=== PATIENT | male | born 1950 | race Caucasian/White ===

== ENCOUNTER 2017-08-02 00:18 | Inpatient (IN) | payer OTHER ==
[~2017-08-02] VITALS: Ht 185.4 cm; Wt 98.0 kg
[2017-08-02] VITALS (7 sets, daily range): BP systolic 119–144; BP diastolic 50–78
[2017-08-02] MEDS: IV NORMAL SALINE 1000ML BAG 1,000 ML IV SCH ×4 (01:30→22:33)
[2017-08-02] MEDS ORDERED: CARB15DR23 OT (02:30)
[2017-08-02] MEDS ORDERED: SILD100T PO (02:30)
[2017-08-02] MEDS ORDERED: MULT1TAB52 PO (02:30)
[2017-08-02] MEDS ORDERED: OMEG1CAP6 PO (02:30)
[2017-08-02] MEDS ORDERED: PROP20TA PO (02:30)
[2017-08-02] MEDS ORDERED: [UNRECOGNIZED DRUG - CODE] PO (02:30)
[2017-08-02] MEDS ORDERED: AMOX125S4 PO (02:30)
[2017-08-02] MEDS ORDERED: ASCO500T3 PO (02:30)
[2017-08-02] MEDS ORDERED: SAW1CAPS3 PO (02:30)
[2017-08-02 05:21] LABS: BASO % 0 % (0-3); EOS % 7 % (0-3); HEMATOCRIT 40.7 % (39.0-53.0); HEMOGLOBIN 14.2 g/dL (13.0-17.5); LYMPH # 0.8 x10^3/uL (1.0-4.8); LYMPH % 13 % (24-48); MEAN CORPUSCULAR HEMOGLOBIN 33 pg (25-35); MEAN CORPUSCULAR HGB CONC 35 g/dL (31-37); MEAN CORPUSCULAR VOLUME 95 fL (79-100); MONO % 11 % (0-9); NEUT % 70 % (31-73); PLATELET COUNT 180 x10^3/uL (140-400); RED BLOOD COUNT 4.29 x10^6/uL (4.30-5.70); WHITE BLOOD COUNT 6.2 x10^3/uL (4.0-11.0)
[2017-08-02 05:32] LABS: ALBUMIN 3.2 g/dL (3.4-5.0); ALBUMIN/GLOBULIN RATIO 1.1 (1.0-1.7); CALCIUM 8.5 mg/dL (8.5-10.1); CREATININE 0.8 mg/dL (0.7-1.3); GFR 96.1; POTASSIUM 4.2 mmol/L (3.5-5.1); TOTAL BILIRUBIN 3.2 mg/dL (0.2-1.0); TOTAL PROTEIN 6.2 g/dL (6.4-8.2)
[2017-08-02 05:41] LABS: INR 1.1 (0.8-1.1); PROTHROMBIN TIME PATIENT 13.4 SEC (11.7-14.0)
[2017-08-02] MEDS ORDERED: PIP/TAZO PER PHARMACY MC PRN (08:30)
[2017-08-02] MEDS: fentaNYL PF VIAL 100 MCG/2 ML VIAL IV PRN ×6 (08:37→23:37)
--- NOTE | 2017-08-02 08:43 | PDOC1 ---
History and Physical Date of Admission Date of Admission DATE: 08/02/17 TIME: 08:40 Identification/Chief Complaint Chief Complaint left ear pain, and abd pain Problems: Source Source: Chart review, Patient History of Present Illness History of Present Illness pt sought care at [facility] last night for recurrent left ear pain, recent infection, s/p Amoxicillin that he feels has returned, has marked ear pain, left. He has felt poorly for days, almost no PO intake > 2 days, nausea, slight abd pain. He feels pain was from just not eating. Recent prior labs a few weeks ago were normal, labs last night showed elevated Bili, transaminases. CT scan abdomen was read as possible Choledochalithiasis. w. a contracted gallbladder. Past Medical History Cardiovascular: HTN Pulmonary: No pertinent hx CENTRAL NERVOUS SYSTEM: Other (intention tremor) GI: No pertinent hx Heme/Onc: No pertinent hx ENT: No pertinent hx Renal/: No pertinent hx Past Surgical History Past Surgical History leg wounds from shrapnel in [place], 1969 Family History Family History: No Significant Social History Smoke: <1 pack per day ALCOHOL: none Drugs: None Current Medications Current Medications Current Medications Sodium Chloride 1,000 ml @ 150 mls/hr Q6H40M IV Last administered on t 01:30; Start 08/02/17 at 01:15 Propranolol HCl (Inderal) 20 mg BID PO ; Start 08/02/17 at 09:00 Fentanyl Citrate (Fentanyl 2ml Vial) 50 mcg PRN Q2HR PRN IV PAIN; Start at 08:30 Active Scripts Active Reported Saw [place] Capsule (Saw [place] Xtr/Zinc Picolin) 1 Each Capsule 1 Each PO Multivitamins (Multivitamin) 1 Each Tablet 1 Tab PO DAILY Fish Oil 1,000 Mg Capsule ([place]-3 Fatty Acids/Fish Oil) 1 Each Capsule 1 Each PO DAILY Ascorbic Acid 500 Mg Tablet 500 Mg PO DAILY Viagra (Sildenafil Citrate) 100 Mg Tablet 1 Tab PO PRN DAILY Propranolol Hcl 20 Mg Tablet 1 Tab PO BID Methylphenidate HCl 10 Mg Tab.chew 10 Mg PO TID Ear Wax Removal (Carbamide Peroxide) 15 Ml Drops 15 Ml OT PRN PRN Amoxicillin 125 Mg/5 Ml Susp.recon 125 Mg PO BID Allergies Allergies: Coded Allergies: No Known Medication Allergies (Verified Allergy, Unknown, 08/02/17) Penicillins (Verified Adverse Reaction, Mild, 08/02/17) he has taken Amoxicillin recently without indicent, he thinks the allergy is more due to Darvon at the time, 40 years ago ROS General: YES: Fatigue, Malaise, Appetite, No: Chills, Night Sweats, Other PSYCHOLOGICAL ROS: YES: Anxiety, Sleep disturbances, No: Behavioral Disorder, Concentration difficultie, Decreased libido, Depression, Disorientation, Hallucinations, Hostility, Irritablity, Memory difficulties, Mood Swings, Obsessive thoughts, Other Eyes: No Blurry vision, No Decreased vision, No Double vision, No Dry eyes, No Excessive tearing, No Eye Pain, No Itchy Eyes, No Loss of vision, No Photophobia , No Scotomata, No Uses contacts, No Uses glasses, No Other HEENT: YES: Heacaches, Other (ear pain, left), No: Visual Changes, Hearing change, Nasal congestion, Nasal discharge, Oral lesions, Sinus pain, Sore Throat, Epistaxis, Sneezing, Snoring, Tinnitus, Vertigo, Vocal changes Respiratory: No: Cough, Hemoptysis, Orthopnea, Pleuritic Pain, Shortness of breath, SOB with excertion, Sputum Changes, Stridor, Tachypnea, Wheezing, Other Cardiovascular: No Chest Pain, No Palpitations, No Orthopnea, No Paroxysmal Noc. Dyspnea, No Edema, No Lt Headedness, No Other Gastrointestinal: Yes Nausea, Yes Abdominal Pain Genitourinary: No Dysuria, No Frequency, No Incontinence, No Hematuria, No Retention, No Discharge, No Urgency, No Pain, No Flank Pain, No Other, No , No , No , No , No , No , No Musculoskeletal: No Gait Disturbance, No Joint Pain, No Joint Stiffness, No Joint Swelling, No Muscle Pain, No Muscular Weakness, No Pain In:, No Swelling In:, No Other Neurological: No Behavorial Changes, No Bowel/Bladder ControlChng, No Confusion , No Dizziness, No Gait Disturbance, No Headaches, No Impaired Coord/balance, No Memory Loss, No Numbness/Tingling, No Seizures, No Speech Problems, No Tremors, No Visual Changes, No Weakness, No Other Skin: No Dry Skin, No Eczema, No Hair Changes, No Lumps, No Mole Changes, No Mottling, No Nail Changes, No Pruritus, No Rash, No Skin Lesion Changes, No Other, No Acne Physical Exam General: Alert, Oriented X3, mild distress HEENT: EOMI, Mucous membr. moist/pink Lungs: Clear to auscultation, Normal air movement Heart: RRR, no gallops, no murmurs Abdomen: Normal bowel sounds, Soft (mild TTP) Extremities: No clubbing, No edema Skin: No rashes, No significant lesion Neuro: Normal gait, Normal speech, Sensation intact, Cranial nerves 3-12 NL Psych/Mental Status: Mental status NL, Mood NL Vitals Vitals Vital Signs Date Time Temp Pulse Resp B/P (MAP) Pulse Ox O2 Delivery O2 Flow Rate FiO2 08/02/17 03:00 98.6 72 18 119/61 (80) 97 Room Air 98.6 Labs Labs Laboratory Tests Test 08/02/17 04:30 White Blood Count 6.2 x10^3/uL (4.0-11.0) Red Blood Count 4.29 x10^6/uL (4.30-5.70) Hemoglobin 14.2 g/dL (13.0-17.5) Hematocrit 40.7 % (39.0-53.0) Mean Corpuscular Volume 95 fL (79-100) Mean Corpuscular Hemoglobin 33 pg (25-35) Mean Corpuscular Hemoglobin Concent 35 g/dL (31-37) Red Cell Distribution Width 14.0 % (11.5-14.5) Platelet Count 180 x10^3/uL (140-400) Neutrophils (%) (Auto) 70 % (31-73) Lymphocytes (%) (Auto) 13 % (24-48) Monocytes (%) (Auto) 11 % (0-9) Eosinophils (%) (Auto) 7 % (0-3) Basophils (%) (Auto) 0 % (0-3) Neutrophils # (Auto) 4.3 x10^3uL (1.8-7.7) Lymphocytes # (Auto) 0.8 x10^3/uL (1.0-4.8) Monocytes # (Auto) 0.7 x10^3/uL (0.0-1.1) Eosinophils # (Auto) 0.4 x10^3/uL (0.0-0.7) Basophils # (Auto) 0.0 x10^3/uL (0.0-0.2) Prothrombin Time 13.4 SEC (11.7-14.0) Prothromb Time International Ratio 1.1 (0.8-1.1) Sodium Level 141 mmol/L (136-145) Potassium Level 4.2 mmol/L (3.5-5.1) Chloride Level 105 mmol/L (98-107) Carbon Dioxide Level 31 mmol/L (21-32) Anion Gap 5 (6-14) Blood Urea Nitrogen 12 mg/dL (8-26) Creatinine 0.8 mg/dL (0.7-1.3) Estimated GFR (Cockcroft-Gault) 96.1 BUN/Creatinine Ratio 15 (6-20) Glucose Level 98 mg/dL (70-99) Calcium Level 8.5 mg/dL (8.5-10.1) Total Bilirubin 3.2 mg/dL (0.2-1.0) Aspartate Amino Transf (AST/SGOT) 251 U/L (15-37) Alanine Aminotransferase (ALT/SGPT) 575 U/L (16-63) Alkaline Phosphatase 135 U/L (46-116) Total Protein 6.2 g/dL (6.4-8.2) Albumin 3.2 g/dL (3.4-5.0) Albumin/Globulin Ratio 1.1 (1.0-1.7) Laboratory Tests Test 08/02/17 04:30 White Blood Count 6.2 x10^3/uL (4.0-11.0) Red Blood Count 4.29 x10^6/uL (4.30-5.70) Hemoglobin 14.2 g/dL (13.0-17.5) Hematocrit 40.7 % (39.0-53.0) Mean Corpuscular Volume 95 fL (79-100) Mean Corpuscular Hemoglobin 33 pg (25-35) Mean Corpuscular Hemoglobin Concent 35 g/dL (31-37) Red Cell Distribution Width 14.0 % (11.5-14.5) Platelet Count 180 x10^3/uL (140-400) Neutrophils (%) (Auto) 70 % (31-73) Lymphocytes (%) (Auto) 13 % (24-48) Monocytes (%) (Auto) 11 % (0-9) Eosinophils (%) (Auto) 7 % (0-3) Basophils (%) (Auto) 0 % (0-3) Neutrophils # (Auto) 4.3 x10^3uL (1.8-7.7) Lymphocytes # (Auto) 0.8 x10^3/uL (1.0-4.8) Monocytes # (Auto) 0.7 x10^3/uL (0.0-1.1) Eosinophils # (Auto) 0.4 x10^3/uL (0.0-0.7) Basophils # (Auto) 0.0 x10^3/uL (0.0-0.2) Prothrombin Time 13.4 SEC (11.7-14.0) Prothromb Time International Ratio 1.1 (0.8-1.1) Sodium Level 141 mmol/L (136-145) Potassium Level 4.2 mmol/L (3.5-5.1) Chloride Level 105 mmol/L (98-107) Carbon Dioxide Level 31 mmol/L (21-32) Anion Gap 5 (6-14) Blood Urea Nitrogen 12 mg/dL (8-26) Creatinine 0.8 mg/dL (0.7-1.3) Estimated GFR (Cockcroft-Gault) 96.1 BUN/Creatinine Ratio 15 (6-20) Glucose Level 98 mg/dL (70-99) Calcium Level 8.5 mg/dL (8.5-10.1) Total Bilirubin 3.2 mg/dL (0.2-1.0) Aspartate Amino Transf (AST/SGOT) 251 U/L (15-37) Alanine Aminotransferase (ALT/SGPT) 575 U/L (16-63) Alkaline Phosphatase 135 U/L (46-116) Total Protein 6.2 g/dL (6.4-8.2) Albumin 3.2 g/dL (3.4-5.0) Albumin/Globulin Ratio 1.1 (1.0-1.7) VTE Prophylaxis Ordered VTE Prophylaxis Devices: Yes VTE Pharmacological Prophylaxi: No Assessment/Plan Assessment/Plan Acute hyperbili, w. transaminitis, choledochalithiasis, check MRCP, consult gen surg and GI left ear otitis media, s/p recent abx with amoxicillin, and he feels fullness has returned, start RED Massey MD Aug 02, 2017 08:43
[2017-08-02] MEDS ORDERED: NICOTINE 14MG PATCH. TD PRN (08:45)
[2017-08-02] MEDS: PROPRANOLOL 10 MG TABLET. PO SCH ×2 (09:00→20:32)
[2017-08-02] MEDS: PIPERACILLIN/TAZOBACTAM 4.5 GM in IV NORMAL SALINE 100ML 100 ML IV SCH ×2 (09:46→17:33)
--- NOTE | 2017-08-02 09:49 | PDOC2 ---
CONSULT Date of Consult Date of Consult DATE: 08/02/17 TIME: 09:43 Reason for Consult Reason for Consult: Elevated LFT's and abnormal CT scan of the abdomen Referring Physician Referring Physician: Damon Identification/Chief Complaint Chief Complaint Headache and left ear pain Problems: Source Source: Patient History of Present Illness Reason for Visit: 66 yo male seen intially at [facility] in [place] for headache and left ear pain. On work up he was found to have elevated LFT's and CT scan showing dilated biliary ducts. His main complaint is head ache. He states he has not eaten much in the last 2 days with some nausea. Denies abdominal pain. Past Medical History Cardiovascular: HTN Pulmonary: No pertinent hx CENTRAL NERVOUS SYSTEM: Other (intention tremor) GI: No pertinent hx Heme/Onc: No pertinent hx ENT: No pertinent hx Renal/: No pertinent hx Past Surgical History Past Surgical History: No pertinent history Family History Family History: No Significant Social History <1 pack per day ALCOHOL: none Drugs: None Current Medications Current Medications Current Medications Sodium Chloride 1,000 ml @ 150 mls/hr Q6H40M IV Last administered on 08:40; Start 08/02/17 at 01:15 Propranolol HCl (Inderal) 20 mg BID PO ; Start 08/02/17 at 09:00 Fentanyl Citrate (Fentanyl 2ml Vial) 50 mcg PRN Q2HR PRN IV PAIN Last administered on 08/02/17 08:37; Start 08/02/17 at 08:30 Piperacillin Sod/ Tazobactam Sod (Zosyn Per Pharmacy) 1 each PRN DAILY PRN MC SEE COMMENTS; Start 08/02/17 at 08:30 Nicotine (Nicoderm Cq 14mg) 1 patch PRN DAILY PRN TD SMOKING CESSATION; Start 08/02/17 at 08:45 Piperacillin Sod/ Tazobactam Sod 4.5 gm/Sodium Chloride 100 ml @ 200 mls/hr Q8H IV ; Start 08/02/17 at 09:00 Active Scripts Active Reported Saw [place] Capsule (Saw [place] Xtr/Zinc Picolin) 1 Each Capsule 1 Each PO Multivitamins (Multivitamin) 1 Each Tablet 1 Tab PO DAILY Fish Oil 1,000 Mg Capsule ([place]-3 Fatty Acids/Fish Oil) 1 Each Capsule 1 Each PO DAILY Ascorbic Acid 500 Mg Tablet 500 Mg PO DAILY Viagra (Sildenafil Citrate) 100 Mg Tablet 1 Tab PO PRN DAILY Propranolol Hcl 20 Mg Tablet 1 Tab PO BID Methylphenidate HCl 10 Mg Tab.chew 10 Mg PO TID Ear Wax Removal (Carbamide Peroxide) 15 Ml Drops 15 Ml OT PRN PRN Amoxicillin 125 Mg/5 Ml Susp.recon 125 Mg PO BID Allergies Allergies: Coded Allergies: No Known Medication Allergies (Verified Allergy, Unknown, 08/02/17) Penicillins (Verified Adverse Reaction, Mild, 08/02/17) he has taken Amoxicillin recently without indicent, he thinks the allergy is more due to Darvon at the time, 40 years ago ROS HEENT: YES: Heacaches, Hearing change Gastrointestinal: Yes Nausea Physical Exam General: Alert, Oriented X3, moderate distress HEENT: Atraumatic, PERRLA, EOMI Lungs: Clear to auscultation, Normal air movement Heart: Regular rate, No murmurs Abdomen: Normal bowel sounds, Soft, No tenderness Extremities: No edema Skin: No significant lesion Neuro: Normal speech Psych/Mental Status: Mental status NL Vitals VITALS Vital Signs Date Time Temp Pulse Resp B/P (MAP) Pulse Ox O2 Delivery O2 Flow Rate FiO2 08/02/17 08:37 Room Air 08/02/17 07:00 97.7 75 18 144/63 (90) 92 97.7 Labs Labs Laboratory Tests Test 08/02/17 04:30 White Blood Count 6.2 x10^3/uL (4.0-11.0) Red Blood Count 4.29 x10^6/uL (4.30-5.70) Hemoglobin 14.2 g/dL (13.0-17.5) Hematocrit 40.7 % (39.0-53.0) Mean Corpuscular Volume 95 fL (79-100) Mean Corpuscular Hemoglobin 33 pg (25-35) Mean Corpuscular Hemoglobin Concent 35 g/dL (31-37) Red Cell Distribution Width 14.0 % (11.5-14.5) Platelet Count 180 x10^3/uL (140-400) Neutrophils (%) (Auto) 70 % (31-73) Lymphocytes (%) (Auto) 13 % (24-48) Monocytes (%) (Auto) 11 % (0-9) Eosinophils (%) (Auto) 7 % (0-3) Basophils (%) (Auto) 0 % (0-3) Neutrophils # (Auto) 4.3 x10^3uL (1.8-7.7) Lymphocytes # (Auto) 0.8 x10^3/uL (1.0-4.8) Monocytes # (Auto) 0.7 x10^3/uL (0.0-1.1) Eosinophils # (Auto) 0.4 x10^3/uL (0.0-0.7) Basophils # (Auto) 0.0 x10^3/uL (0.0-0.2) Prothrombin Time 13.4 SEC (11.7-14.0) Prothromb Time International Ratio 1.1 (0.8-1.1) Sodium Level 141 mmol/L (136-145) Potassium Level 4.2 mmol/L (3.5-5.1) Chloride Level 105 mmol/L (98-107) Carbon Dioxide Level 31 mmol/L (21-32) Anion Gap 5 (6-14) Blood Urea Nitrogen 12 mg/dL (8-26) Creatinine 0.8 mg/dL (0.7-1.3) Estimated GFR (Cockcroft-Gault) 96.1 BUN/Creatinine Ratio 15 (6-20) Glucose Level 98 mg/dL (70-99) Calcium Level 8.5 mg/dL (8.5-10.1) Total Bilirubin 3.2 mg/dL (0.2-1.0) Aspartate Amino Transf (AST/SGOT) 251 U/L (15-37) Alanine Aminotransferase (ALT/SGPT) 575 U/L (16-63) Alkaline Phosphatase 135 U/L (46-116) Total Protein 6.2 g/dL (6.4-8.2) Albumin 3.2 g/dL (3.4-5.0) Albumin/Globulin Ratio 1.1 (1.0-1.7) Laboratory Tests Test 08/02/17 04:30 White Blood Count 6.2 x10^3/uL (4.0-11.0) Red Blood Count 4.29 x10^6/uL (4.30-5.70) Hemoglobin 14.2 g/dL (13.0-17.5) Hematocrit 40.7 % (39.0-53.0) Mean Corpuscular Volume 95 fL (79-100) Mean Corpuscular Hemoglobin 33 pg (25-35) Mean Corpuscular Hemoglobin Concent 35 g/dL (31-37) Red Cell Distribution Width 14.0 % (11.5-14.5) Platelet Count 180 x10^3/uL (140-400) Neutrophils (%) (Auto) 70 % (31-73) Lymphocytes (%) (Auto) 13 % (24-48) Monocytes (%) (Auto) 11 % (0-9) Eosinophils (%) (Auto) 7 % (0-3) Basophils (%) (Auto) 0 % (0-3) Neutrophils # (Auto) 4.3 x10^3uL (1.8-7.7) Lymphocytes # (Auto) 0.8 x10^3/uL (1.0-4.8) Monocytes # (Auto) 0.7 x10^3/uL (0.0-1.1) Eosinophils # (Auto) 0.4 x10^3/uL (0.0-0.7) Basophils # (Auto) 0.0 x10^3/uL (0.0-0.2) Prothrombin Time 13.4 SEC (11.7-14.0) Prothromb Time International Ratio 1.1 (0.8-1.1) Sodium Level 141 mmol/L (136-145) Potassium Level 4.2 mmol/L (3.5-5.1) Chloride Level 105 mmol/L (98-107) Carbon Dioxide Level 31 mmol/L (21-32) Anion Gap 5 (6-14) Blood Urea Nitrogen 12 mg/dL (8-26) Creatinine 0.8 mg/dL (0.7-1.3) Estimated GFR (Cockcroft-Gault) 96.1 BUN/Creatinine Ratio 15 (6-20) Glucose Level 98 mg/dL (70-99) Calcium Level 8.5 mg/dL (8.5-10.1) Total Bilirubin 3.2 mg/dL (0.2-1.0) Aspartate Amino Transf (AST/SGOT) 251 U/L (15-37) Alanine Aminotransferase (ALT/SGPT) 575 U/L (16-63) Alkaline Phosphatase 135 U/L (46-116) Total Protein 6.2 g/dL (6.4-8.2) Albumin 3.2 g/dL (3.4-5.0) Albumin/Globulin Ratio 1.1 (1.0-1.7) Assessment/Plan Assessment/Plan Painless jaundice with dilated biliary tree on CT scan MRCP pending, will F/U on results. Possible choledocholithiasis versus other obstructing lesion. HERB RIVAS MD Aug 02, 2017 09:49
--- NOTE | 2017-08-02 11:16 | PDOC2 ---
GI CONSULT Date Date/Time DATE: 08/02/17 TIME: 11:08 Providers Attending Physician Alicia Jose MD Referring Physician Consulting Physician Dr. Ferrera History of Present Illness HPI 66 yo WM with recent right ear ache and headache- not responding to abx, then go "wick " placed- but due to increasing HOLM, had CT and ER visit at [facility]- labs showed unexpected elevation in LFTs and then CT abd showed dilated CBD, pancreatic duct, gallstone but also early cirrhosis and ? increased nodes- he denies abd pain, food intolerance or biliary symptoms in past but did have two episodes of vomitng this week- he thinks related to abx on empty stomach?. No jaundice, no prior GI complaints but is evasive and stoic History Past Surgical History: No pertinent history Review of Systems Ears/Nose/Throat: Yes: ear pain Gastrointestinal: Yes: vomiting Psychiatric/Neurological: Yes: headache Allergies Allergies Allergies Coded Allergies Type Severity Reaction Last Updated Verified No Known Medication Allergies Allergy Unknown 08/02/17 Yes Penicillins Adverse Reaction Mild 08/02/17 Yes Medications Medications Current Medications Sodium Chloride 1,000 ml @ 150 mls/hr Q6H40M IV Last administered on 08:40; Start 08/02/17 at 01:15 Propranolol HCl (Inderal) 20 mg BID PO ; Start 08/02/17 at 09:00 Fentanyl Citrate (Fentanyl 2ml Vial) 50 mcg PRN Q2HR PRN IV PAIN Last administered on 08/02/17 10:55; Start 08/02/17 at 08:30 Piperacillin Sod/ Tazobactam Sod (Zosyn Per Pharmacy) 1 each PRN DAILY PRN MC SEE COMMENTS; Start 08/02/17 at 08:30 Nicotine (Nicoderm Cq 14mg) 1 patch PRN DAILY PRN TD SMOKING CESSATION; Start 08/02/17 at 08:45 Piperacillin Sod/ Tazobactam Sod 4.5 gm/Sodium Chloride 100 ml @ 200 mls/hr Q8H IV Last administered on 08/02/17 09:46; Start 08/02/17 at 09:00 Active Scripts Active Reported Saw [place] Capsule (Saw [place] Xtr/Zinc Picolin) 1 Each Capsule 1 Each PO Multivitamins (Multivitamin) 1 Each Tablet 1 Tab PO DAILY Fish Oil 1,000 Mg Capsule ([place]-3 Fatty Acids/Fish Oil) 1 Each Capsule 1 Each PO DAILY Ascorbic Acid 500 Mg Tablet 500 Mg PO DAILY Viagra (Sildenafil Citrate) 100 Mg Tablet 1 Tab PO PRN DAILY Propranolol Hcl 20 Mg Tablet 1 Tab PO BID Methylphenidate HCl 10 Mg Tab.chew 10 Mg PO TID Ear Wax Removal (Carbamide Peroxide) 15 Ml Drops 15 Ml OT PRN PRN Amoxicillin 125 Mg/5 Ml Susp.recon 125 Mg PO BID Physical Exam Physical Exam VSS alert chest- clear cor- RRR abd- soft NON TENDER no masses- good bowel sounds extrem- no CCE neuro- alert oriented Labs Labs Laboratory Tests Test 08/02/17 04:30 White Blood Count 6.2 x10^3/uL (4.0-11.0) Red Blood Count 4.29 x10^6/uL (4.30-5.70) Hemoglobin 14.2 g/dL (13.0-17.5) Hematocrit 40.7 % (39.0-53.0) Mean Corpuscular Volume 95 fL (79-100) Mean Corpuscular Hemoglobin 33 pg (25-35) Mean Corpuscular Hemoglobin Concent 35 g/dL (31-37) Red Cell Distribution Width 14.0 % (11.5-14.5) Platelet Count 180 x10^3/uL (140-400) Neutrophils (%) (Auto) 70 % (31-73) Lymphocytes (%) (Auto) 13 % (24-48) Monocytes (%) (Auto) 11 % (0-9) Eosinophils (%) (Auto) 7 % (0-3) Basophils (%) (Auto) 0 % (0-3) Neutrophils # (Auto) 4.3 x10^3uL (1.8-7.7) Lymphocytes # (Auto) 0.8 x10^3/uL (1.0-4.8) Monocytes # (Auto) 0.7 x10^3/uL (0.0-1.1) Eosinophils # (Auto) 0.4 x10^3/uL (0.0-0.7) Basophils # (Auto) 0.0 x10^3/uL (0.0-0.2) Prothrombin Time 13.4 SEC (11.7-14.0) Prothromb Time International Ratio 1.1 (0.8-1.1) Sodium Level 141 mmol/L (136-145) Potassium Level 4.2 mmol/L (3.5-5.1) Chloride Level 105 mmol/L (98-107) Carbon Dioxide Level 31 mmol/L (21-32) Anion Gap 5 (6-14) Blood Urea Nitrogen 12 mg/dL (8-26) Creatinine 0.8 mg/dL (0.7-1.3) Estimated GFR (Cockcroft-Gault) 96.1 BUN/Creatinine Ratio 15 (6-20) Glucose Level 98 mg/dL (70-99) Calcium Level 8.5 mg/dL (8.5-10.1) Total Bilirubin 3.2 mg/dL (0.2-1.0) Aspartate Amino Transf (AST/SGOT) 251 U/L (15-37) Alanine Aminotransferase (ALT/SGPT) 575 U/L (16-63) Alkaline Phosphatase 135 U/L (46-116) Total Protein 6.2 g/dL (6.4-8.2) Albumin 3.2 g/dL (3.4-5.0) Albumin/Globulin Ratio 1.1 (1.0-1.7) Imaging Imaging CT at [facility]- as above- MRCP pending Assessment Assessment Abnormal LFTS and CT- mixed picture- no typical biliary painful symptoms but dilated ducts and gallstone seen- but also dilated panc duct ? occult chronic pancreatitis, occult stricture, cholangioCA or ampullary tumor should also be considered Earache and headache- consider ENT re-evaluation Problems: Plan Plan MRCP as ordered [facility] 19-9 review labs and xrays will discuss with Dr. Corey about other testing Thank you for allowing us to participate in the care of your patient. We will continue to follow the patient with you and provide an appropriate recommendation as it becomes available. CASEY FERRERA MD Aug 02, 2017 11:16
[2017-08-02] MEDS: ONDANSETRON PF 4 MG/2 ML VIAL. IV PRN (13:18)
--- NOTE | 2017-08-02 13:44 | RAD ---
MRI of the abdomen without contrast to include a MRCP 08/02/2017 Clinical history: Nausea and abdominal pain. Technique: Unenhanced T2-weighted axial and coronal, fat saturated T2-weighted coronal and in and out of phase T1-weighted axial images of the abdomen were obtained. Fat saturated thin section T2-weighted coronal images through the abdomen were obtained. Multiplanar 3-D MIP reconstructed images of the biliary system were obtained for a MRCP. Findings: Comparison is made to the patient's outside CT scan of the abdomen and pelvis performed at the [facility] dated 08/01/2017. The liver, spleen, pancreas, and adrenal glands are within normal limits. Rounded high signal intensity lesions are seen involving both kidneys on the T2-weighted images. These measure 1.8 to 6.4 cm in size. These likely represent cysts. The abdominal aorta tapers normally. No free fluid is seen within the abdomen. There is no evidence of bowel obstruction. The MRCP reconstructed images demonstrate a 1.3 cm gallstone within the neck of the gallbladder. The common hepatic duct, common bile duct, left and right hepatic ducts and their branches and the main pancreatic duct are well visualized and are within normal limits. No filling defect is seen. There is no evidence of choledocholithiasis. Impression: Cholelithiasis. Otherwise negative study.
[2017-08-03] MEDS: PIPERACILLIN/TAZOBACTAM 4.5 GM in IV NORMAL SALINE 100ML 100 ML IV SCH ×3 (01:13→17:19)
[2017-08-03 03:00] VITALS: BP 120/57
[2017-08-03] MEDS: fentaNYL PF VIAL 100 MCG/2 ML VIAL IV PRN ×4 (03:04→11:58)
[2017-08-03 04:45] LABS: BILIRUBIN,URINE SMALL (NEG); GLUCOSE,URINE NEGATIVE (NEG); NITRITE,URINE NEGATIVE (NEG); PROTEIN,URINE NEGATIVE (NEG-TRACE)
[2017-08-03 05:04] LABS: BACTERIA,URINE 0 /HPF (0-FEW); RBC,URINE OCC /HPF (0-2); WBC,URINE OCC /HPF (0-4)
[2017-08-03 05:05] LABS: SQUAMOUS EPITHELIAL CELL,UR OCC /LPF
[2017-08-03] MEDS: IV NORMAL SALINE 1000ML BAG 1,000 ML IV SCH ×3 (05:19→17:20)
[2017-08-03 05:23] LABS: BASO % 0 % (0-3); EOS % 8 % (0-3); HEMATOCRIT 39.9 % (39.0-53.0); HEMOGLOBIN 13.5 g/dL (13.0-17.5); LYMPH # 0.8 x10^3/uL (1.0-4.8); LYMPH % 14 % (24-48); MEAN CORPUSCULAR HEMOGLOBIN 33 pg (25-35); MEAN CORPUSCULAR HGB CONC 34 g/dL (31-37); MEAN CORPUSCULAR VOLUME 97 fL (79-100); MONO % 12 % (0-9); NEUT % 66 % (31-73); PLATELET COUNT 169 x10^3/uL (140-400); RED BLOOD COUNT 4.13 x10^6/uL (4.30-5.70); WHITE BLOOD COUNT 5.7 x10^3/uL (4.0-11.0)
[2017-08-03 05:33] LABS: INR 1.1 (0.8-1.1); PROTHROMBIN TIME PATIENT 13.2 SEC (11.7-14.0)
[2017-08-03 06:09] LABS: ALBUMIN 2.9 g/dL (3.4-5.0); CALCIUM 8.2 mg/dL (8.5-10.1); CREATININE 0.9 mg/dL (0.7-1.3); DIRECT BILIRUBIN 3.2 mg/dL (0.0-0.2); GFR 83.9; POTASSIUM 4.1 mmol/L (3.5-5.1); TOTAL BILIRUBIN 3.8 mg/dL (0.2-1.0); TOTAL PROTEIN 5.7 g/dL (6.4-8.2)
[2017-08-03 07:00] VITALS: BP 90/55
[2017-08-03] MEDS: PROPRANOLOL 10 MG TABLET. PO SCH ×2 (08:53→21:00)
[2017-08-03 11:00] VITALS: BP 131/62
--- NOTE | 2017-08-03 11:35 | PDOC ---
Subjective: Subjective: "I'm just peachy." Objective: Vital Signs: Vital Signs Date Time Temp Pulse Resp B/P (MAP) Pulse Ox O2 Delivery O2 Flow Rate FiO2 08/03/17 09:22 95 Room Air 08/03/17 07:00 98.5 59 20 90/55 (67) 98.5 Labs: Laboratory Tests Test 08/03/17 03:05 08/03/17 04:55 Urine Collection Type Unknown Urine Color Kelsey Urine Clarity Clear Urine pH 7.0 Urine Specific [place] 1.010 Urine Protein Negative mg/dL Urine Glucose (UA) Negative mg/dL Urine Ketones (Stick) Negative mg/dL Urine Blood Negative Urine Nitrite Negative Urine Bilirubin Small Urine Urobilinogen Dipstick 4.0 mg/dL Urine Leukocyte Esterase Negative Urine RBC Occ /HPF Urine WBC Occ /HPF Urine Squamous Epithelial Cells Occ /LPF Urine Bacteria 0 /HPF Urine Mucus Slight /LPF White Blood Count 5.7 x10^3/uL Red Blood Count 4.13 x10^6/uL Hemoglobin 13.5 g/dL Hematocrit 39.9 % Mean Corpuscular Volume 97 fL Mean Corpuscular Hemoglobin 33 pg Mean Corpuscular Hemoglobin Concent 34 g/dL Red Cell Distribution Width 14.0 % Platelet Count 169 x10^3/uL Neutrophils (%) (Auto) 66 % Lymphocytes (%) (Auto) 14 % Monocytes (%) (Auto) 12 % Eosinophils (%) (Auto) 8 % Basophils (%) (Auto) 0 % Neutrophils # (Auto) 3.7 x10^3uL Lymphocytes # (Auto) 0.8 x10^3/uL Monocytes # (Auto) 0.7 x10^3/uL Eosinophils # (Auto) 0.5 x10^3/uL Basophils # (Auto) 0.0 x10^3/uL Prothrombin Time 13.2 SEC Prothromb Time International Ratio 1.1 Sodium Level 140 mmol/L Potassium Level 4.1 mmol/L Chloride Level 106 mmol/L Carbon Dioxide Level 29 mmol/L Anion Gap 5 Blood Urea Nitrogen 7 mg/dL Creatinine 0.9 mg/dL Estimated GFR (Cockcroft-Gault) 83.9 BUN/Creatinine Ratio 8 Glucose Level 125 mg/dL Calcium Level 8.2 mg/dL Total Bilirubin 3.8 mg/dL Direct Bilirubin 3.2 mg/dL Aspartate Amino Transf (AST/SGOT) 160 U/L Alanine Aminotransferase (ALT/SGPT) 446 U/L Alkaline Phosphatase 129 U/L Total Protein 5.7 g/dL Albumin 2.9 g/dL Albumin/Globulin Ratio 1.0 Imaging: MRCP 08/02/17 Findings: Comparison is made to the patient's outside CT scan of the abdomen and pelvis performed at the [facility] dated 08/01/2017. The liver, spleen, pancreas, and adrenal glands are within normal limits. Rounded high signal intensity lesions are seen involving both kidneys on the T2- weighted images. These measure 1.8 to 6.4 cm in size. These likely represent cysts. The abdominal aorta tapers normally. No free fluid is seen within the abdomen. There is no evidence of bowel obstruction. The MRCP reconstructed images demonstrate a 1.3 cm gallstone within the neck of the gallbladder. The common hepatic duct, common bile duct, left and right hepatic ducts and their branches and the main pancreatic duct are well visualized and are within normal limits. No filling defect is seen. There is no evidence of choledocholithiasis. Impression: Cholelithiasis. Otherwise negative study. PE: GEN: NAD, walking around room, walked down [place] to lobby to meet LUNGS: clear HEART: RRR ABD: non-tender NEURO/PSYCH: A & O 3, seems annoyed, doesn't make eye contact A/P: Headache, earache - asks for further eval w/ ENT, will defer to primary Vomiting - resolved Abnormal LFTs Abnormal CT @ [facility] - dilated CBD, pancreatic duct, early cirrhosis (none demonstrated on MRCP here - specifically no choledocholithiasis) -[id number] pending Cholelithiasis - on MRCP as above -- I explained MRCP findings to pt and , spent significant time. He asks the same questions repeatedly, says he will refuse surgery. asks for ENT eval. Await surgical thoughts. D/w HANNAH. ANGEL DILLON Aug 03, 2017 11:35
[2017-08-03] MEDS ORDERED: AMOX1TAB61 PO (13:27)
[2017-08-03] MEDS ORDERED: HYDR-971 PO (13:29)
[2017-08-03] MEDS: AMOXICILLIN/K CLAV 875/125MG TABLET. PO SCH ×3 (13:45→21:00)
[2017-08-03] MEDS ORDERED: IBUPROFEN 400 MG TABLET. PO PRN (13:45)
--- NOTE | 2017-08-03 13:53 | PDOC ---
RUTH JACOB [employer]MENT[employer]WORK[employer] 08/03/17 1353: SURGICAL PROGRESS NOTE Subjective tolerating lunch no abdominal pain, no n/v considering now going ahead with surgery Vital Signs Vital Signs Date Time Temp Pulse Resp B/P (MAP) Pulse Ox O2 Delivery O2 Flow Rate FiO2 08/03/17 12:37 Room Air 08/03/17 11:00 97.9 59 20 131/62 (85) 94 97.9 General: Alert, Oriented X3, Cooperative, No acute distress Abdomen: Soft, No tenderness Labs Laboratory Tests Test 08/02/17 04:30 08/03/17 03:05 08/03/17 04:55 White Blood Count 6.2 x10^3/uL (4.0-11.0) 5.7 x10^3/uL (4.0-11.0) Red Blood Count 4.29 x10^6/uL (4.30-5.70) 4.13 x10^6/uL (4.30-5.70) Hemoglobin 14.2 g/dL (13.0-17.5) 13.5 g/dL (13.0-17.5) Hematocrit 40.7 % (39.0-53.0) 39.9 % (39.0-53.0) Mean Corpuscular Volume 95 fL (79-100) 97 fL (79-100) Mean Corpuscular Hemoglobin 33 pg (25-35) 33 pg (25-35) Mean Corpuscular Hemoglobin Concent 35 g/dL (31-37) 34 g/dL (31-37) Red Cell Distribution Width 14.0 % (11.5-14.5) 14.0 % (11.5-14.5) Platelet Count 180 x10^3/uL (140-400) 169 x10^3/uL (140-400) Neutrophils (%) (Auto) 70 % (31-73) 66 % (31-73) Lymphocytes (%) (Auto) 13 % (24-48) 14 % (24-48) Monocytes (%) (Auto) 11 % (0-9) 12 % (0-9) Eosinophils (%) (Auto) 7 % (0-3) 8 % (0-3) Basophils (%) (Auto) 0 % (0-3) 0 % (0-3) Neutrophils # (Auto) 4.3 x10^3uL (1.8-7.7) 3.7 x10^3uL (1.8-7.7) Lymphocytes # (Auto) 0.8 x10^3/uL (1.0-4.8) 0.8 x10^3/uL (1.0-4.8) Monocytes # (Auto) 0.7 x10^3/uL (0.0-1.1) 0.7 x10^3/uL (0.0-1.1) Eosinophils # (Auto) 0.4 x10^3/uL (0.0-0.7) 0.5 x10^3/uL (0.0-0.7) Basophils # (Auto) 0.0 x10^3/uL (0.0-0.2) 0.0 x10^3/uL (0.0-0.2) Prothrombin Time 13.4 SEC (11.7-14.0) 13.2 SEC (11.7-14.0) Prothromb Time International Ratio 1.1 (0.8-1.1) 1.1 (0.8-1.1) Sodium Level 141 mmol/L (136-145) 140 mmol/L (136-145) Potassium Level 4.2 mmol/L (3.5-5.1) 4.1 mmol/L (3.5-5.1) Chloride Level 105 mmol/L (98-107) 106 mmol/L (98-107) Carbon Dioxide Level 31 mmol/L (21-32) 29 mmol/L (21-32) Anion Gap 5 (6-14) 5 (6-14) Blood Urea Nitrogen 12 mg/dL (8-26) 7 mg/dL (8-26) Creatinine 0.8 mg/dL (0.7-1.3) 0.9 mg/dL (0.7-1.3) Estimated GFR (Cockcroft-Gault) 96.1 83.9 BUN/Creatinine Ratio 15 (6-20) 8 (6-20) Glucose Level 98 mg/dL (70-99) 125 mg/dL (70-99) Calcium Level 8.5 mg/dL (8.5-10.1) 8.2 mg/dL (8.5-10.1) Total Bilirubin 3.2 mg/dL (0.2-1.0) 3.8 mg/dL (0.2-1.0) Aspartate Amino Transf (AST/SGOT) 251 U/L (15-37) 160 U/L (15-37) Alanine Aminotransferase (ALT/SGPT) 575 U/L (16-63) 446 U/L (16-63) Alkaline Phosphatase 135 U/L (46-116) 129 U/L (46-116) Total Protein 6.2 g/dL (6.4-8.2) 5.7 g/dL (6.4-8.2) Albumin 3.2 g/dL (3.4-5.0) 2.9 g/dL (3.4-5.0) Albumin/Globulin Ratio 1.1 (1.0-1.7) 1.0 (1.0-1.7) Urine Collection Type Unknown Urine Color Kelsey Urine Clarity Clear Urine pH 7.0 Urine Specific [place] 1.010 Urine Protein Negative mg/dL (NEG-TRACE) Urine Glucose (UA) Negative mg/dL (NEG) Urine Ketones (Stick) Negative mg/dL (NEG) Urine Blood Negative (NEG) Urine Nitrite Negative (NEG) Urine Bilirubin Small (NEG) Urine Urobilinogen Dipstick 4.0 mg/dL (0.2 mg/dL) Urine Leukocyte Esterase Negative (NEG) Urine RBC Occ /HPF (0-2) Urine WBC Occ /HPF (0-4) Urine Squamous Epithelial Cells Occ /LPF Urine Bacteria 0 /HPF (0-FEW) Urine Mucus Slight /LPF Direct Bilirubin 3.2 mg/dL (0.0-0.2) Laboratory Tests Test 08/03/17 03:05 08/03/17 04:55 Urine Collection Type Unknown Urine Color Kelsey Urine Clarity Clear Urine pH 7.0 Urine Specific [place] 1.010 Urine Protein Negative mg/dL (NEG-TRACE) Urine Glucose (UA) Negative mg/dL (NEG) Urine Ketones (Stick) Negative mg/dL (NEG) Urine Blood Negative (NEG) Urine Nitrite Negative (NEG) Urine Bilirubin Small (NEG) Urine Urobilinogen Dipstick 4.0 mg/dL (0.2 mg/dL) Urine Leukocyte Esterase Negative (NEG) Urine RBC Occ /HPF (0-2) Urine WBC Occ /HPF (0-4) Urine Squamous Epithelial Cells Occ /LPF Urine Bacteria 0 /HPF (0-FEW) Urine Mucus Slight /LPF White Blood Count 5.7 x10^3/uL (4.0-11.0) Red Blood Count 4.13 x10^6/uL (4.30-5.70) Hemoglobin 13.5 g/dL (13.0-17.5) Hematocrit 39.9 % (39.0-53.0) Mean Corpuscular Volume 97 fL (79-100) Mean Corpuscular Hemoglobin 33 pg (25-35) Mean Corpuscular Hemoglobin Concent 34 g/dL (31-37) Red Cell Distribution Width 14.0 % (11.5-14.5) Platelet Count 169 x10^3/uL (140-400) Neutrophils (%) (Auto) 66 % (31-73) Lymphocytes (%) (Auto) 14 % (24-48) Monocytes (%) (Auto) 12 % (0-9) Eosinophils (%) (Auto) 8 % (0-3) Basophils (%) (Auto) 0 % (0-3) Neutrophils # (Auto) 3.7 x10^3uL (1.8-7.7) Lymphocytes # (Auto) 0.8 x10^3/uL (1.0-4.8) Monocytes # (Auto) 0.7 x10^3/uL (0.0-1.1) Eosinophils # (Auto) 0.5 x10^3/uL (0.0-0.7) Basophils # (Auto) 0.0 x10^3/uL (0.0-0.2) Prothrombin Time 13.2 SEC (11.7-14.0) Prothromb Time International Ratio 1.1 (0.8-1.1) Sodium Level 140 mmol/L (136-145) Potassium Level 4.1 mmol/L (3.5-5.1) Chloride Level 106 mmol/L (98-107) Carbon Dioxide Level 29 mmol/L (21-32) Anion Gap 5 (6-14) Blood Urea Nitrogen 7 mg/dL (8-26) Creatinine 0.9 mg/dL (0.7-1.3) Estimated GFR (Cockcroft-Gault) 83.9 BUN/Creatinine Ratio 8 (6-20) Glucose Level 125 mg/dL (70-99) Calcium Level 8.2 mg/dL (8.5-10.1) Total Bilirubin 3.8 mg/dL (0.2-1.0) Direct Bilirubin 3.2 mg/dL (0.0-0.2) Aspartate Amino Transf (AST/SGOT) 160 U/L (15-37) Alanine Aminotransferase (ALT/SGPT) 446 U/L (16-63) Alkaline Phosphatase 129 U/L (46-116) Total Protein 5.7 g/dL (6.4-8.2) Albumin 2.9 g/dL (3.4-5.0) Albumin/Globulin Ratio 1.0 (1.0-1.7) Problem List elevated LFTS MRCP without choledocholithiasis, normal ducts, cholelithiasis ? primary liver disease--hepatitis panel pending Noted T bili 3.8 today, 3.2 yesterday Nurse reports possible DC per primary--d/w Dr Rivas--if discharges would have him FU in clinic next week --review hepatitis panel and discuss surgery at that time Problems: HERB RIVAS MD 08/03/17 1720: SURGICAL PROGRESS NOTE Assessment/Plan Awaiting results of hepititis panel. Will discuss surgery with the patient tomorrow. Agree with Samara's assessment and plan. Problems: RUTH JACOB APRN Aug 03, 2017 13:53 HERB RIVAS MD Aug 03, 2017 17:20
--- NOTE | 2017-08-03 14:39 | PDOC ---
PROGRESS NOTES Chief Complaint Chief Complaint Ear pain L, HOLM N/V ASSESSMENT AND PLAN: 1. Ear pain: with sinus pressure. had been started on augmentin on O/P basis; continue for 2 weeks (currently on zosyn for GI issues) 2. Cholelithiasis: MRCP with stone in GB neck. pt now desires surgery LOS 3. Hepatitis: transaminases improving, TBil lagging in recovery. suspect 2/2 (passed) gallstone. monitor. Hep panel pending 4. Prophylaxis: H2B, lovenox (hold until surgery plans confirmed) History of Present Illness History of Present Illness Ear pain HOLM sl improved. he is less concerned with abd issues than with pain. no N/V. Vitals Vitals Vital Signs Date Time Temp Pulse Resp B/P (MAP) Pulse Ox O2 Delivery O2 Flow Rate FiO2 08/03/17 12:37 Room Air 08/03/17 11:00 97.9 59 20 131/62 (85) 94 97.9 Physical Exam General: Alert, Oriented X3, Cooperative, No acute distress Heart: Regular rate, No murmurs Lungs: Clear Abdomen: Normal bowel sounds, Soft, No tenderness Extremities: No edema Skin: No significant lesion Labs LABS Laboratory Tests Test 08/03/17 03:05 08/03/17 04:55 Urine Collection Type Unknown Urine Color Kelsey Urine Clarity Clear Urine pH 7.0 Urine Specific [place] 1.010 Urine Protein Negative mg/dL (NEG-TRACE) Urine Glucose (UA) Negative mg/dL (NEG) Urine Ketones (Stick) Negative mg/dL (NEG) Urine Blood Negative (NEG) Urine Nitrite Negative (NEG) Urine Bilirubin Small (NEG) Urine Urobilinogen Dipstick 4.0 mg/dL (0.2 mg/dL) Urine Leukocyte Esterase Negative (NEG) Urine RBC Occ /HPF (0-2) Urine WBC Occ /HPF (0-4) Urine Squamous Epithelial Cells Occ /LPF Urine Bacteria 0 /HPF (0-FEW) Urine Mucus Slight /LPF White Blood Count 5.7 x10^3/uL (4.0-11.0) Red Blood Count 4.13 x10^6/uL (4.30-5.70) Hemoglobin 13.5 g/dL (13.0-17.5) Hematocrit 39.9 % (39.0-53.0) Mean Corpuscular Volume 97 fL (79-100) Mean Corpuscular Hemoglobin 33 pg (25-35) Mean Corpuscular Hemoglobin Concent 34 g/dL (31-37) Red Cell Distribution Width 14.0 % (11.5-14.5) Platelet Count 169 x10^3/uL (140-400) Neutrophils (%) (Auto) 66 % (31-73) Lymphocytes (%) (Auto) 14 % (24-48) Monocytes (%) (Auto) 12 % (0-9) Eosinophils (%) (Auto) 8 % (0-3) Basophils (%) (Auto) 0 % (0-3) Neutrophils # (Auto) 3.7 x10^3uL (1.8-7.7) Lymphocytes # (Auto) 0.8 x10^3/uL (1.0-4.8) Monocytes # (Auto) 0.7 x10^3/uL (0.0-1.1) Eosinophils # (Auto) 0.5 x10^3/uL (0.0-0.7) Basophils # (Auto) 0.0 x10^3/uL (0.0-0.2) Prothrombin Time 13.2 SEC (11.7-14.0) Prothromb Time International Ratio 1.1 (0.8-1.1) Sodium Level 140 mmol/L (136-145) Potassium Level 4.1 mmol/L (3.5-5.1) Chloride Level 106 mmol/L (98-107) Carbon Dioxide Level 29 mmol/L (21-32) Anion Gap 5 (6-14) Blood Urea Nitrogen 7 mg/dL (8-26) Creatinine 0.9 mg/dL (0.7-1.3) Estimated GFR (Cockcroft-Gault) 83.9 BUN/Creatinine Ratio 8 (6-20) Glucose Level 125 mg/dL (70-99) Calcium Level 8.2 mg/dL (8.5-10.1) Total Bilirubin 3.8 mg/dL (0.2-1.0) Direct Bilirubin 3.2 mg/dL (0.0-0.2) Aspartate Amino Transf (AST/SGOT) 160 U/L (15-37) Alanine Aminotransferase (ALT/SGPT) 446 U/L (16-63) Alkaline Phosphatase 129 U/L (46-116) Total Protein 5.7 g/dL (6.4-8.2) Albumin 2.9 g/dL (3.4-5.0) Albumin/Globulin Ratio 1.0 (1.0-1.7) TAWANNA AQUINO MD Aug 03, 2017 14:39
[2017-08-03] MEDS: HYDROcodone/APAP 5/325MG 1 TAB TABLET PO PRN (14:46)
[2017-08-03 15:11] VITALS: BP 141/53
[2017-08-03 17:13] LABS: HEP A IGM ABDY Negative (Negative)
[2017-08-03 19:00] VITALS: BP 122/66
[2017-08-03 23:00] VITALS: BP 141/69
[2017-08-04] MEDS: IV NORMAL SALINE 1000ML BAG 1,000 ML IV SCH ×4 (01:17→23:18)
[2017-08-04] MEDS: PIPERACILLIN/TAZOBACTAM 4.5 GM in IV NORMAL SALINE 100ML 100 ML IV SCH ×3 (01:17→17:19)
[2017-08-04 03:00] VITALS: BP 129/65
[2017-08-04 07:30] VITALS: BP 114/61
[2017-08-04] MEDS: ONDANSETRON PF 4 MG/2 ML VIAL. IV PRN (08:45)
[2017-08-04] MEDS: fentaNYL PF VIAL 100 MCG/2 ML VIAL IV PRN ×6 (08:50→23:18)
[2017-08-04] MEDS: PROPRANOLOL 10 MG TABLET. PO SCH ×2 (09:00→21:00)
[2017-08-04] MEDS: AMOXICILLIN/K CLAV 875/125MG TABLET. PO SCH (09:00)
--- NOTE | 2017-08-04 09:22 | PDOC ---
PROGRESS NOTES Chief Complaint Chief Complaint Ear pain L, HOLM N/V ASSESSMENT AND PLAN: 1. Cholelithiasis: MRCP with stone in GB neck. pt now desires surgery LOS. awaiting Dr May's input. 2. Hepatitis: transaminases improving, TBil lagging in recovery. suspect 2/2 (passed) gallstone. monitor. Hep panel negative 3. Ear pain: with sinus pressure. had been started on augmentin on O/P basis; continue for 2 weeks (currently on zosyn for GI issues) 4. Prophylaxis: H2B, lovenox (hold until surgery plans confirmed) History of Present Illness History of Present Illness +nausea after eating breakfast, thinks it's because of Abx pills (which he did not receive) Vitals Vitals Vital Signs Date Time Temp Pulse Resp B/P (MAP) Pulse Ox O2 Delivery O2 Flow Rate FiO2 08/04/17 08:50 18 08/04/17 03:00 96.3 61 129/65 (86) 95 Room Air 96.3 Physical Exam General: Alert, Oriented X3, Cooperative, No acute distress Heart: Regular rate, No murmurs Lungs: Clear Abdomen: Normal bowel sounds, Soft, Other (mild TTP RUQ) Extremities: No edema Skin: No significant lesion TAWANNA AQUINO MD Aug 04, 2017 09:22
[2017-08-04 09:54] LABS: CALCIUM 8.1 mg/dL (8.5-10.1); CREATININE 0.8 mg/dL (0.7-1.3); GFR 96.1
[2017-08-04 10:01] LABS: ALBUMIN 2.7 g/dL (3.4-5.0); TOTAL BILIRUBIN 3.6 mg/dL (0.2-1.0); TOTAL PROTEIN 5.4 g/dL (6.4-8.2)
[2017-08-04 10:04] LABS: BASO % 1 % (0-3); EOS % 7 % (0-3); HEMATOCRIT 37.2 % (39.0-53.0); HEMOGLOBIN 12.5 g/dL (13.0-17.5); LYMPH # 0.7 x10^3/uL (1.0-4.8); LYMPH % 14 % (24-48); MEAN CORPUSCULAR HEMOGLOBIN 33 pg (25-35); MEAN CORPUSCULAR HGB CONC 34 g/dL (31-37); MEAN CORPUSCULAR VOLUME 98 fL (79-100); MONO % 11 % (0-9); NEUT % 68 % (31-73); PLATELET COUNT 143 x10^3/uL (140-400); RED BLOOD COUNT 3.81 x10^6/uL (4.30-5.70); RED CELL DISTRIBUTION WIDTH 14.5 % (11.5-14.5); WHITE BLOOD COUNT 5.4 x10^3/uL (4.0-11.0)
[2017-08-04 10:30] VITALS: BP 102/39
--- NOTE | 2017-08-04 13:21 | PDOC ---
Subjective: Subjective: Decided to proceed w/ surgery, says this is scheduled for tomorrow. says he's been vomiting today, has a headache. Objective: Vital Signs: Vital Signs Date Time Temp Pulse Resp B/P (MAP) Pulse Ox O2 Delivery O2 Flow Rate FiO2 08/04/17 12:16 18 08/04/17 09:18 Room Air 08/04/17 09:00 95 114/61 08/04/17 07:30 96.1 96 96.1 Labs: Laboratory Tests Test 08/04/17 09:40 White Blood Count 5.4 x10^3/uL Red Blood Count 3.81 x10^6/uL Hemoglobin 12.5 g/dL Hematocrit 37.2 % Mean Corpuscular Volume 98 fL Mean Corpuscular Hemoglobin 33 pg Mean Corpuscular Hemoglobin Concent 34 g/dL Red Cell Distribution Width 14.5 % Platelet Count 143 x10^3/uL Neutrophils (%) (Auto) 68 % Lymphocytes (%) (Auto) 14 % Monocytes (%) (Auto) 11 % Eosinophils (%) (Auto) 7 % Basophils (%) (Auto) 1 % Neutrophils # (Auto) 3.6 x10^3uL Lymphocytes # (Auto) 0.7 x10^3/uL Monocytes # (Auto) 0.6 x10^3/uL Eosinophils # (Auto) 0.4 x10^3/uL Basophils # (Auto) 0.0 x10^3/uL Sodium Level 142 mmol/L Potassium Level 4.0 mmol/L Chloride Level 107 mmol/L Carbon Dioxide Level 29 mmol/L Anion Gap 6 Blood Urea Nitrogen 8 mg/dL Creatinine 0.8 mg/dL Estimated GFR (Cockcroft-Gault) 96.1 BUN/Creatinine Ratio 10 Glucose Level 101 mg/dL Calcium Level 8.1 mg/dL Total Bilirubin 3.6 mg/dL Aspartate Amino Transf (AST/SGOT) 109 U/L Alanine Aminotransferase (ALT/SGPT) 348 U/L Alkaline Phosphatase 119 U/L Total Protein 5.4 g/dL Albumin 2.7 g/dL Albumin/Globulin Ratio 1.0 PE: GEN: NAD LUNGS: clear HEART: RRR ABD: non-tender NEURO/PSYCH: A & O 3, drowsy A/P: Headache/earache Abnormal LFTs - Hep panel negative, some improvement in transaminases, bili 3.6 Vomiting Cholelithiasis on MRCP -- Await operative findings. ANGEL DILLON Aug 04, 2017 13:21
[2017-08-04 14:45] VITALS: BP 96/46
[2017-08-04] MEDS: HYDROcodone/APAP 5/325MG 1 TAB TABLET PO PRN ×2 (15:01→20:20)
--- NOTE | 2017-08-04 15:03 | PDOC ---
SURGICAL PROGRESS NOTE Subjective Continues to have nausea and vomiting after eating. Vital Signs Vital Signs Date Time Temp Pulse Resp B/P (MAP) Pulse Ox O2 Delivery O2 Flow Rate FiO2 08/04/17 14:48 18 Room Air 08/04/17 09:00 95 114/61 08/04/17 07:30 96.1 96 96.1 I&O Intake and Output 08/05/17 06:59 Intake Total 1220 ml Output Total 100 ml Balance 1120 ml Intake Oral 120 ml IV Total 1100 ml Emesis 100 ml PATIENT HAS A ALBERTO: No General: Alert, Oriented X3, Cooperative, mild distress Abdomen: Normal bowel sounds, Soft, Other (TTP RUQ) Labs Laboratory Tests Test 08/03/17 03:05 08/03/17 04:55 08/04/17 09:40 Urine Collection Type Unknown Urine Color Kelsey Urine Clarity Clear Urine pH 7.0 Urine Specific [place] 1.010 Urine Protein Negative mg/dL (NEG-TRACE) Urine Glucose (UA) Negative mg/dL (NEG) Urine Ketones (Stick) Negative mg/dL (NEG) Urine Blood Negative (NEG) Urine Nitrite Negative (NEG) Urine Bilirubin Small (NEG) Urine Urobilinogen Dipstick 4.0 mg/dL (0.2 mg/dL) Urine Leukocyte Esterase Negative (NEG) Urine RBC Occ /HPF (0-2) Urine WBC Occ /HPF (0-4) Urine Squamous Epithelial Cells Occ /LPF Urine Bacteria 0 /HPF (0-FEW) Urine Mucus Slight /LPF White Blood Count 5.7 x10^3/uL (4.0-11.0) 5.4 x10^3/uL (4.0-11.0) Red Blood Count 4.13 x10^6/uL (4.30-5.70) 3.81 x10^6/uL (4.30-5.70) Hemoglobin 13.5 g/dL (13.0-17.5) 12.5 g/dL (13.0-17.5) Hematocrit 39.9 % (39.0-53.0) 37.2 % (39.0-53.0) Mean Corpuscular Volume 97 fL (79-100) 98 fL (79-100) Mean Corpuscular Hemoglobin 33 pg (25-35) 33 pg (25-35) Mean Corpuscular Hemoglobin Concent 34 g/dL (31-37) 34 g/dL (31-37) Red Cell Distribution Width 14.0 % (11.5-14.5) 14.5 % (11.5-14.5) Platelet Count 169 x10^3/uL (140-400) 143 x10^3/uL (140-400) Neutrophils (%) (Auto) 66 % (31-73) 68 % (31-73) Lymphocytes (%) (Auto) 14 % (24-48) 14 % (24-48) Monocytes (%) (Auto) 12 % (0-9) 11 % (0-9) Eosinophils (%) (Auto) 8 % (0-3) 7 % (0-3) Basophils (%) (Auto) 0 % (0-3) 1 % (0-3) Neutrophils # (Auto) 3.7 x10^3uL (1.8-7.7) 3.6 x10^3uL (1.8-7.7) Lymphocytes # (Auto) 0.8 x10^3/uL (1.0-4.8) 0.7 x10^3/uL (1.0-4.8) Monocytes # (Auto) 0.7 x10^3/uL (0.0-1.1) 0.6 x10^3/uL (0.0-1.1) Eosinophils # (Auto) 0.5 x10^3/uL (0.0-0.7) 0.4 x10^3/uL (0.0-0.7) Basophils # (Auto) 0.0 x10^3/uL (0.0-0.2) 0.0 x10^3/uL (0.0-0.2) Prothrombin Time 13.2 SEC (11.7-14.0) Prothromb Time International Ratio 1.1 (0.8-1.1) Sodium Level 140 mmol/L (136-145) 142 mmol/L (136-145) Potassium Level 4.1 mmol/L (3.5-5.1) 4.0 mmol/L (3.5-5.1) Chloride Level 106 mmol/L (98-107) 107 mmol/L (98-107) Carbon Dioxide Level 29 mmol/L (21-32) 29 mmol/L (21-32) Anion Gap 5 (6-14) 6 (6-14) Blood Urea Nitrogen 7 mg/dL (8-26) 8 mg/dL (8-26) Creatinine 0.9 mg/dL (0.7-1.3) 0.8 mg/dL (0.7-1.3) Estimated GFR (Cockcroft-Gault) 83.9 96.1 BUN/Creatinine Ratio 8 (6-20) 10 (6-20) Glucose Level 125 mg/dL (70-99) 101 mg/dL (70-99) Calcium Level 8.2 mg/dL (8.5-10.1) 8.1 mg/dL (8.5-10.1) Total Bilirubin 3.8 mg/dL (0.2-1.0) 3.6 mg/dL (0.2-1.0) Direct Bilirubin 3.2 mg/dL (0.0-0.2) Aspartate Amino Transf (AST/SGOT) 160 U/L (15-37) 109 U/L (15-37) Alanine Aminotransferase (ALT/SGPT) 446 U/L (16-63) 348 U/L (16-63) Alkaline Phosphatase 129 U/L (46-116) 119 U/L (46-116) Total Protein 5.7 g/dL (6.4-8.2) 5.4 g/dL (6.4-8.2) Albumin 2.9 g/dL (3.4-5.0) 2.7 g/dL (3.4-5.0) Albumin/Globulin Ratio 1.0 (1.0-1.7) 1.0 (1.0-1.7) Hepatitis A IgM Antibody Negative (Negative) Hepatitis B Surface Antigen Negative (Negative) Hepatitis B Core IgM Antibody Negative (Negative) Hepatitis C Antibody <0.1 s/co ratio Laboratory Tests Test 08/04/17 09:40 White Blood Count 5.4 x10^3/uL (4.0-11.0) Red Blood Count 3.81 x10^6/uL (4.30-5.70) Hemoglobin 12.5 g/dL (13.0-17.5) Hematocrit 37.2 % (39.0-53.0) Mean Corpuscular Volume 98 fL (79-100) Mean Corpuscular Hemoglobin 33 pg (25-35) Mean Corpuscular Hemoglobin Concent 34 g/dL (31-37) Red Cell Distribution Width 14.5 % (11.5-14.5) Platelet Count 143 x10^3/uL (140-400) Neutrophils (%) (Auto) 68 % (31-73) Lymphocytes (%) (Auto) 14 % (24-48) Monocytes (%) (Auto) 11 % (0-9) Eosinophils (%) (Auto) 7 % (0-3) Basophils (%) (Auto) 1 % (0-3) Neutrophils # (Auto) 3.6 x10^3uL (1.8-7.7) Lymphocytes # (Auto) 0.7 x10^3/uL (1.0-4.8) Monocytes # (Auto) 0.6 x10^3/uL (0.0-1.1) Eosinophils # (Auto) 0.4 x10^3/uL (0.0-0.7) Basophils # (Auto) 0.0 x10^3/uL (0.0-0.2) Sodium Level 142 mmol/L (136-145) Potassium Level 4.0 mmol/L (3.5-5.1) Chloride Level 107 mmol/L (98-107) Carbon Dioxide Level 29 mmol/L (21-32) Anion Gap 6 (6-14) Blood Urea Nitrogen 8 mg/dL (8-26) Creatinine 0.8 mg/dL (0.7-1.3) Estimated GFR (Cockcroft-Gault) 96.1 BUN/Creatinine Ratio 10 (6-20) Glucose Level 101 mg/dL (70-99) Calcium Level 8.1 mg/dL (8.5-10.1) Total Bilirubin 3.6 mg/dL (0.2-1.0) Aspartate Amino Transf (AST/SGOT) 109 U/L (15-37) Alanine Aminotransferase (ALT/SGPT) 348 U/L (16-63) Alkaline Phosphatase 119 U/L (46-116) Total Protein 5.4 g/dL (6.4-8.2) Albumin 2.7 g/dL (3.4-5.0) Albumin/Globulin Ratio 1.0 (1.0-1.7) Assessment/Plan Cholelithiasis with elevated LFT's MRCP normal Hepititis panel negative In light of continued N/V and gallstones will plan L/S Kaylyn with IOC tomorrow Problems: HERB RIVAS MD Aug 04, 2017 15:03
[2017-08-04 19:00] VITALS: BP 106/49
[2017-08-04 23:00] VITALS: BP 116/60
[2017-08-05] VITALS (14 sets, daily range): BP systolic 101–139; BP diastolic 49–99
[2017-08-05] MEDS: PIPERACILLIN/TAZOBACTAM 4.5 GM in IV NORMAL SALINE 100ML 100 ML IV SCH ×3 (02:29→16:44)
[2017-08-05] MEDS: fentaNYL PF VIAL 100 MCG/2 ML VIAL IV PRN ×7 (02:36→20:30)
[2017-08-05 06:09] LABS: BASO % 1 % (0-3); EOS % 7 % (0-3); HEMATOCRIT 36.9 % (39.0-53.0); HEMOGLOBIN 12.8 g/dL (13.0-17.5); LYMPH # 1.3 x10^3/uL (1.0-4.8); LYMPH % 27 % (24-48); MEAN CORPUSCULAR HEMOGLOBIN 33 pg (25-35); MEAN CORPUSCULAR HGB CONC 35 g/dL (31-37); MEAN CORPUSCULAR VOLUME 95 fL (79-100); MONO % 11 % (0-9); NEUT % 54 % (31-73); PLATELET COUNT 158 x10^3/uL (140-400); RED BLOOD COUNT 3.88 x10^6/uL (4.30-5.70); RED CELL DISTRIBUTION WIDTH 14.4 % (11.5-14.5); WHITE BLOOD COUNT 4.7 x10^3/uL (4.0-11.0)
[2017-08-05] MEDS ORDERED: IOHEXOL 300 MG/ML 50 ML VIAL. ONE (06:10)
[2017-08-05] MEDS ORDERED: SURGICEL HEMOSTAT 4X8 EACH. ONE (06:10)
[2017-08-05] MEDS ORDERED: BUPIVACAINE-EPI 0.25%-1:200000 MPF 30 ML VIAL. ONE (06:11)
[2017-08-05 06:36] LABS: ALBUMIN 2.8 g/dL (3.4-5.0); CALCIUM 8.3 mg/dL (8.5-10.1); CREATININE 0.9 mg/dL (0.7-1.3); GFR 83.9; POTASSIUM 3.8 mmol/L (3.5-5.1); TOTAL BILIRUBIN 3.5 mg/dL (0.2-1.0); TOTAL PROTEIN 5.7 g/dL (6.4-8.2)
[2017-08-05] MEDS: IV NORMAL SALINE 1000ML BAG 1,000 ML IV SCH ×3 (06:38→16:44)
[2017-08-05] MEDS ORDERED: fentaNYL PF VIAL 100 MCG/2 ML VIAL IV PRN (07:00)
[2017-08-05] MEDS ORDERED: PROCHLORPERAZINE 10 MG/2 ML VIAL. IV PRN (07:00)
[2017-08-05] MEDS ORDERED: MORPHINE SULFATE 2 MG/ML DISP.SYRIN. IV PRN (07:00)
[2017-08-05] MEDS ORDERED: ONDANSETRON PF 4 MG/2 ML VIAL. IV PRN (07:00)
[2017-08-05] MEDS ORDERED: HYDROmorphone 2 MG/ML VIAL IV PRN (07:00)
[2017-08-05] MEDS ORDERED: IV RINGERS,LACTATED 1000ML 1,000 ML IV SCH (07:00)
[2017-08-05] MEDS ORDERED: LIDOCAINE 1% PF 2 ML VIAL. ID PRN (07:00)
[2017-08-05] MEDS: PROPRANOLOL 10 MG TABLET. PO SCH ×2 (08:52→21:00)
[2017-08-05] MEDS ORDERED: LIDOCAINE 2% PF Vial for OR 5 ML VIAL. ONE (09:53)
[2017-08-05] MEDS ORDERED: DEXAMETHASONE SOD PHOS 20 MG/5 ML VIAL. ONE (09:53)
[2017-08-05] MEDS ORDERED: fentaNYL PF VIAL 100 MCG/2 ML VIAL ONE (09:53)
[2017-08-05] MEDS ORDERED: ONDANSETRON PF 4 MG/2 ML VIAL. ONE (09:53)
[2017-08-05] MEDS ORDERED: MIDAZOLAM HCL/PF 2 MG/2 ML VIAL. ONE (09:53)
[2017-08-05] MEDS ORDERED: PROPOFOL 20 ML IV ONE (09:53)
[2017-08-05] MEDS ORDERED: SEVOFLURANE 61 TO 120 MINUTES. IH ONE (11:57)
[2017-08-05] MEDS ORDERED: NEOSTIGMINE 10 MG/10 ML VIAL. ONE (12:05)
[2017-08-05] MEDS ORDERED: NEOSTIGMINE METHYLSULFATE 5 MG/5 ML SYRINGE. ONE (12:06)
[2017-08-05] MEDS ORDERED: GLYCOPYRROLATE 1 MG/5 ML VIAL. ONE (12:06)
--- NOTE | 2017-08-05 12:08 | RAD ---
Operative cholangiogram History: Intraoperative cholangiogram. Procedure: Images were provided during the procedure. The cystic duct has been catheterized and contrast has been injected. Findings: The common hepatic bile duct and common bile duct are patent without evidence of intraluminal filling defect or obstruction. Contrast empties normally into the duodenum. Impression: Normal operative cholangiogram. Fluoroscopic images 2. Total fluoroscopy time 0.12 minutes
--- NOTE | 2017-08-05 12:21 | PDOC4 ---
Operative Note Operative Note Date: 08/05/2017 Preoperative diagnosis: Cholecystitis cholelithiasis Postoperative diagnosis: Same Procedure: Laparoscopic cholecystectomy with intraoperative cholangiograms Surgeon: Lalo Specimen: Gallbladder Dictation: Patient is a 66-year-old gentleman was matted to the hospital with nausea vomiting postprandial pain and elevated LFTs ultrasound of his gallbladder show gallstones MRCP did not show any choledocholithiasis. Procedure of lap scopic cholecystectomy was explained to the patient detail was benefits were also discussed including bleeding infection injury to intra- abdominal contents possibly necessitating further or open operations. Seemed understanding gave both verbal and written consent had procedure performed. She was taken to the operating room placed in the supine position general anesthesia was initiated once patient was asleep and intubated his abdomen was prepped and draped in usual sterile fashion using ChloraPrep. An area in the left upper quadrant was injected with quarter percent Marcaine with epinephrine incision was made lead blade scalpel and using a Optipore access to the abdominal cavity was obtained and a pneumoperitoneum achieved. 5 mm camera was placed within the port and the abdomen was inspected was noted that he had quite a few adhesions of omentum to the umbilicus all area. Had a previous umbilical hernia repair. Just lateral on the right side a next of the umbilicus and area was injected with quarter percent Marcaine with epinephrine incision made lead blade scalpel and a 11 mm port was placed under direct visualization. At this time 5 OmegaPort was placed in the epigastrium under direct visualization and a I'm OmegaPort was placed in the right upper quadrant and right lateral quadrant under direct visualization. The dome of the gallbladder was grasped retracted cephalad the infundibulum of the gallbladder was grasped retracted laterally exposing the triangle. The adherent tissues the triangle are taken down bluntly dissection exposing the cystic duct and cystic artery the cystic duct was clipped on the gallbladder side and partially open with Endo Maxwell scissors using a cholangiocatheter placed through 14-gauge Angiocath in the anterior abdominal wall was placed within the cystic duct and cholangiogram shot showing good retrograde and antegrade flow of contrast material into the hepatic radicals and is willing to the duodenum without any evidence of obstruction. At this point the cholangiocatheter was removed the duct was doubly clipped as well as the cystic artery was doubly clipped and the gallbladder was taken off the liver with hook electrocautery placed in Endo Catch bag and removed from the 11 mm port site. The right upper quadrant was irrigated and suctioned dry hemostasis deemed appropriate and the pneumoperitoneum was reduced all ports removed fascial defect of the millimeter port site was closed with a [id number] 0 Vicryl suture and skin was approximated all port sites 4 subcuticular Monocryl Mastisol Steri-Strip's and Band-Aids were applied as dressings. Patient was waken next made in the operating room taken recovery in stable condition all sponge instrument and needle counts listed as correct estimated blood loss 10 mL. HERB RIVAS MD Aug 05, 2017 12:21
[2017-08-05] MEDS ORDERED: oxyCODONE/APAP 5/325 1 TAB TABLET PO PRN ×2 (12:30)
--- NOTE | 2017-08-05 12:44 | PDOC ---
PROGRESS NOTES Chief Complaint Chief Complaint Ear pain L, HOLM N/V ASSESSMENT AND PLAN: 1. Cholelithiasis: MRCP with stone in GB neck. s/p CCY this AM 2. Hepatitis: transaminases improving, TBil lagging in recovery. suspect 2/2 (passed) gallstone. monitor. Hep panel negative 3. Ear pain: with sinus pressure. had been started on augmentin on O/P basis; continue for 2 weeks (currently on zosyn for GI issues) 4. Prophylaxis: H2B, lovenox (hold until surgery plans confirmed) History of Present Illness History of Present Illness HOLM, ear pain ongoing. Vitals Vitals Vital Signs Date Time Temp Pulse Resp B/P (MAP) Pulse Ox O2 Delivery O2 Flow Rate FiO2 08/05/17 12:37 20 95 Simple Mask 10.0 08/05/17 10:05 98.7 81 128/68 98.7 Physical Exam General: Alert, Oriented X3, Cooperative, mild distress Heart: Regular rate, No murmurs Lungs: Clear Abdomen: Normal bowel sounds, Soft, Other (mild TTP RUQ) Extremities: No edema Skin: No significant lesion Labs LABS Laboratory Tests Test 08/05/17 05:05 White Blood Count 4.7 x10^3/uL (4.0-11.0) Red Blood Count 3.88 x10^6/uL (4.30-5.70) Hemoglobin 12.8 g/dL (13.0-17.5) Hematocrit 36.9 % (39.0-53.0) Mean Corpuscular Volume 95 fL (79-100) Mean Corpuscular Hemoglobin 33 pg (25-35) Mean Corpuscular Hemoglobin Concent 35 g/dL (31-37) Red Cell Distribution Width 14.4 % (11.5-14.5) Platelet Count 158 x10^3/uL (140-400) Neutrophils (%) (Auto) 54 % (31-73) Lymphocytes (%) (Auto) 27 % (24-48) Monocytes (%) (Auto) 11 % (0-9) Eosinophils (%) (Auto) 7 % (0-3) Basophils (%) (Auto) 1 % (0-3) Neutrophils # (Auto) 2.5 x10^3uL (1.8-7.7) Lymphocytes # (Auto) 1.3 x10^3/uL (1.0-4.8) Monocytes # (Auto) 0.5 x10^3/uL (0.0-1.1) Eosinophils # (Auto) 0.3 x10^3/uL (0.0-0.7) Basophils # (Auto) 0.0 x10^3/uL (0.0-0.2) Sodium Level 143 mmol/L (136-145) Potassium Level 3.8 mmol/L (3.5-5.1) Chloride Level 107 mmol/L (98-107) Carbon Dioxide Level 29 mmol/L (21-32) Anion Gap 7 (6-14) Blood Urea Nitrogen 7 mg/dL (8-26) Creatinine 0.9 mg/dL (0.7-1.3) Estimated GFR (Cockcroft-Gault) 83.9 BUN/Creatinine Ratio 8 (6-20) Glucose Level 89 mg/dL (70-99) Calcium Level 8.3 mg/dL (8.5-10.1) Total Bilirubin 3.5 mg/dL (0.2-1.0) Aspartate Amino Transf (AST/SGOT) 97 U/L (15-37) Alanine Aminotransferase (ALT/SGPT) 322 U/L (16-63) Alkaline Phosphatase 124 U/L (46-116) Total Protein 5.7 g/dL (6.4-8.2) Albumin 2.8 g/dL (3.4-5.0) Albumin/Globulin Ratio 1.0 (1.0-1.7) Lipase 117 U/L (73-393) TAWANNA AQUINO MD Aug 05, 2017 12:44
--- NOTE | 2017-08-05 13:17 | PDOC ---
Objective: Objective: Out of room. Vital Signs: Vital Signs Date Time Temp Pulse Resp B/P (MAP) Pulse Ox O2 Delivery O2 Flow Rate FiO2 08/05/17 13:06 20 99 Aerosol Mask 10.0 08/05/17 13:00 58 131/61 08/05/17 12:24 100.3 100.3 Labs: Laboratory Tests Test 08/05/17 05:05 White Blood Count 4.7 x10^3/uL Red Blood Count 3.88 x10^6/uL Hemoglobin 12.8 g/dL Hematocrit 36.9 % Mean Corpuscular Volume 95 fL Mean Corpuscular Hemoglobin 33 pg Mean Corpuscular Hemoglobin Concent 35 g/dL Red Cell Distribution Width 14.4 % Platelet Count 158 x10^3/uL Neutrophils (%) (Auto) 54 % Lymphocytes (%) (Auto) 27 % Monocytes (%) (Auto) 11 % Eosinophils (%) (Auto) 7 % Basophils (%) (Auto) 1 % Neutrophils # (Auto) 2.5 x10^3uL Lymphocytes # (Auto) 1.3 x10^3/uL Monocytes # (Auto) 0.5 x10^3/uL Eosinophils # (Auto) 0.3 x10^3/uL Basophils # (Auto) 0.0 x10^3/uL Sodium Level 143 mmol/L Potassium Level 3.8 mmol/L Chloride Level 107 mmol/L Carbon Dioxide Level 29 mmol/L Anion Gap 7 Blood Urea Nitrogen 7 mg/dL Creatinine 0.9 mg/dL Estimated GFR (Cockcroft-Gault) 83.9 BUN/Creatinine Ratio 8 Glucose Level 89 mg/dL Calcium Level 8.3 mg/dL Total Bilirubin 3.5 mg/dL Aspartate Amino Transf (AST/SGOT) 97 U/L Alanine Aminotransferase (ALT/SGPT) 322 U/L Alkaline Phosphatase 124 U/L Total Protein 5.7 g/dL Albumin 2.8 g/dL Albumin/Globulin Ratio 1.0 Lipase 117 U/L Imaging: IOC 08/05/17 Impression: Normal operative cholangiogram. PE: no exam A/P: Abnormal LFTs - Hep panel negative Cholelithiasis on MRCP -- Out for surgery, will follow. Normal IOC as above. ANGEL DILLON Aug 05, 2017 13:17
[2017-08-06] MEDS: PIPERACILLIN/TAZOBACTAM 4.5 GM in IV NORMAL SALINE 100ML 100 ML IV SCH ×2 (02:07→09:46)
[2017-08-06] MEDS: fentaNYL PF VIAL 100 MCG/2 ML VIAL IV PRN (02:16)
[2017-08-06 03:00] VITALS: BP 114/61
[2017-08-06 07:00] VITALS: BP 129/82
--- NOTE | 2017-08-06 08:20 | PDOC ---
SURGICAL PROGRESS NOTE Subjective Feeling good, tolerated regular diet Vital Signs Vital Signs Date Time Temp Pulse Resp B/P (MAP) Pulse Ox O2 Delivery O2 Flow Rate FiO2 08/06/17 03:00 98.1 54 114/61 (78) 98 Nasal Cannula 2.0 98.1 08/06/17 02:46 20 PATIENT HAS A ALBERTO: No General: Alert, Oriented X3, Cooperative, No acute distress Abdomen: Normal bowel sounds, Soft, No tenderness Labs Laboratory Tests Test 08/04/17 09:40 08/05/17 05:05 White Blood Count 5.4 x10^3/uL (4.0-11.0) 4.7 x10^3/uL (4.0-11.0) Red Blood Count 3.81 x10^6/uL (4.30-5.70) 3.88 x10^6/uL (4.30-5.70) Hemoglobin 12.5 g/dL (13.0-17.5) 12.8 g/dL (13.0-17.5) Hematocrit 37.2 % (39.0-53.0) 36.9 % (39.0-53.0) Mean Corpuscular Volume 98 fL (79-100) 95 fL (79-100) Mean Corpuscular Hemoglobin 33 pg (25-35) 33 pg (25-35) Mean Corpuscular Hemoglobin Concent 34 g/dL (31-37) 35 g/dL (31-37) Red Cell Distribution Width 14.5 % (11.5-14.5) 14.4 % (11.5-14.5) Platelet Count 143 x10^3/uL (140-400) 158 x10^3/uL (140-400) Neutrophils (%) (Auto) 68 % (31-73) 54 % (31-73) Lymphocytes (%) (Auto) 14 % (24-48) 27 % (24-48) Monocytes (%) (Auto) 11 % (0-9) 11 % (0-9) Eosinophils (%) (Auto) 7 % (0-3) 7 % (0-3) Basophils (%) (Auto) 1 % (0-3) 1 % (0-3) Neutrophils # (Auto) 3.6 x10^3uL (1.8-7.7) 2.5 x10^3uL (1.8-7.7) Lymphocytes # (Auto) 0.7 x10^3/uL (1.0-4.8) 1.3 x10^3/uL (1.0-4.8) Monocytes # (Auto) 0.6 x10^3/uL (0.0-1.1) 0.5 x10^3/uL (0.0-1.1) Eosinophils # (Auto) 0.4 x10^3/uL (0.0-0.7) 0.3 x10^3/uL (0.0-0.7) Basophils # (Auto) 0.0 x10^3/uL (0.0-0.2) 0.0 x10^3/uL (0.0-0.2) Sodium Level 142 mmol/L (136-145) 143 mmol/L (136-145) Potassium Level 4.0 mmol/L (3.5-5.1) 3.8 mmol/L (3.5-5.1) Chloride Level 107 mmol/L (98-107) 107 mmol/L (98-107) Carbon Dioxide Level 29 mmol/L (21-32) 29 mmol/L (21-32) Anion Gap 6 (6-14) 7 (6-14) Blood Urea Nitrogen 8 mg/dL (8-26) 7 mg/dL (8-26) Creatinine 0.8 mg/dL (0.7-1.3) 0.9 mg/dL (0.7-1.3) Estimated GFR (Cockcroft-Gault) 96.1 83.9 BUN/Creatinine Ratio 10 (6-20) 8 (6-20) Glucose Level 101 mg/dL (70-99) 89 mg/dL (70-99) Calcium Level 8.1 mg/dL (8.5-10.1) 8.3 mg/dL (8.5-10.1) Total Bilirubin 3.6 mg/dL (0.2-1.0) 3.5 mg/dL (0.2-1.0) Aspartate Amino Transf (AST/SGOT) 109 U/L (15-37) 97 U/L (15-37) Alanine Aminotransferase (ALT/SGPT) 348 U/L (16-63) 322 U/L (16-63) Alkaline Phosphatase 119 U/L (46-116) 124 U/L (46-116) Total Protein 5.4 g/dL (6.4-8.2) 5.7 g/dL (6.4-8.2) Albumin 2.7 g/dL (3.4-5.0) 2.8 g/dL (3.4-5.0) Albumin/Globulin Ratio 1.0 (1.0-1.7) 1.0 (1.0-1.7) Lipase 117 U/L (73-393) Assessment/Plan POD#1 S/P L/S Cholecystectomy with normal cholangiogram Doing well, tolerating diet Tbili 3.5 LFT's decreasing OK to D/C home from surgical POV Problems: HERB RIVAS MD Aug 06, 2017 08:20
[2017-08-06] MEDS: PROPRANOLOL 10 MG TABLET. PO SCH (09:00)
[2017-08-06 10:38] VITALS: BP 112/63
--- NOTE | 2017-08-06 15:24 | PATHOLOGY ---
PATHOLOGY REPORT * * * * * * * * FINAL DIAGNOSIS: Gallbladder, cholecystectomy: - Chronic cholecystitis with cholelithiasis. (SKM:luly; 08/06/2017) REPORT ELECTRONICALLY SIGNED BY: Terese Danielson M.D. DATE/TIME: 08/06/2017 15:23 * * * * * * * * GROSS PATHOLOGY: Received in formalin labeled "Derrek Chapman, gallbladder + contents," is a 8.1 x 3.7 x 2.6 cm, intact gallbladder with bluepinkish, vascular, and wrinkled serosal surfaces. Opening the gallbladder reveals dark green, velvety mucosa and an average wall thickness of 0.2 cm. Calculi are present, measuring 1.3 cm in maximum dimension, possessing a dark yellow color and granular appearance, and feeling firm to the touch. No masses are noted grossly. Delivery Stock Clerk sections from the body and fundus are submitted along with the proximal margin in cassette A1. (TSD; 08/05/2017) INITIAL CPT CODE(S): A; 66715 Professional services performed [place] [facility] [place] [address] Technical services performed by [facility] at [address] [place] [address] [address], [place] [address]. SPECIMEN(S) RECEIVED: A.Gallbladder and contents CLINICAL HISTORY: Painless jaundice, dilated biliary tree, choledocholithiasis PATIENT: DERREK CHAPMAN /AGE: 1109/17/1950 (Age: 66) PATIENT #: [id number] ALT CASE #: SPECIMEN COLLECTION DATE: 08/05/2017 SPECIMEN RECEIVED DATE: 08/05/2017 [facility] - [address] [place] [address] - PHONE: [phone] * * * END OF REPORT * * *
--- NOTE | 2017-08-07 05:20 | DS ---
DATE OF DISCHARGE: 08/06/2017 CHIEF COMPLAINT: Left ear pain and headache, nausea and vomiting. HOSPITAL COURSE: The patient is a 66-year-old gentleman who presented to the Emergency Room with severe ear pain, sinus pressure and headaches. He had been started on amoxicillin on an outpatient basis without any relief, and he therefore presented to the ER for further workup. He believes that he actually did not tolerate the antibiotic with nausea and vomiting, which had been going on for a couple of days. On further evaluation, he was actually found with cholelithiasis on CT. An MRCP was ordered as well revealing a stone in the gallbladder neck. The patient after initial declining the surgery reversed his mind and desired cholecystectomy, which was undertaken by Dr. May on 08/05/2017. The patient tolerated procedure well. He felt better from a nausea standpoint as well as noticed improvement in his ear pain and headache. The Zosyn that he had received in hospital was switched to Augmentin b.i.d. upon discharge. DISCHARGE DIAGNOSES: Cholelithiasis, status post laparoscopic cholecystectomy on 08/05/2017, ear pain and sinusitis. PHYSICAL EXAMINATION: VITAL SIGNS: Show a blood pressure of 112/63, heart rate of 60, respiratory rate at 18. He is afebrile. GENERAL: This is a 66-year-old well-nourished gentleman, alert and oriented, no acute distress. LUNGS: Clear. HEART: Regular rate and rhythm. ABDOMEN: Has positive bowel sounds, soft, minimal tenderness to palpation around the left side. EXTREMITIES: Show no edema. DISCHARGE DISPOSITION: To home. DISCHARGE CONDITION: Improved. DISCHARGE MEDICATIONS: Please refer to MAR. DISCHARGE INSTRUCTIONS: The patient will follow up with Dr. May in 1 week. He will see his PCP in 1-2 weeks. TAWANNA AQUINO MD DR: CHRISTY/nts JOB#: [id number] / [id number] RUKHSANA
== END 2017-08-06 11:28 | disposition home or self-care (01) | DRG 418 ==
LOC: 5 NORTH 00:18
PROVIDERS: ADMIT Internal Medicine; ATTEND Internal Medicine
PROC: BF101ZZ Fluoroscopy of Bile Ducts using Low Osmolar Contrast (ICD-10-PCS; 2017-08-05)
PROC: 0FT44ZZ Resection of Gallbladder, Percutaneous Endoscopic Approach (ICD-10-PCS; principal; 2017-08-05 10:45)
DX: K80.10 Calculus of gallbladder with chronic cholecystitis without obstruction (principal); E44.1 Mild protein-calorie malnutrition; K75.9 Inflammatory liver disease, unspecified; H66.92 Otitis media, unspecified, left ear; I10 Essential (primary) hypertension; F17.210 Nicotine dependence, cigarettes, uncomplicated; E80.6 Other disorders of bilirubin metabolism; R74.0 Nonspecific elevation of levels of transaminase and lactic acid dehydrogenase [LDH]; Z88.0 Allergy status to penicillin; J32.9 Chronic sinusitis, unspecified; Z68.28 Body mass index [BMI] 28.0-28.9, adult
CPT/HCPCS: 36415; 74181; 74300; 80053; 80074; 80076; 81001; 83690; 85025; 85610; 86301; 88304; J0780; J1100; J2250; J2405; J2543; J2704; J2710; J3010; J3490; J7030; J7120; Q9967; 99285-25; J2001